=== PATIENT | female | born 1960 | race Caucasian/White ===

== ENCOUNTER 2016-06-28 16:19 | Emergency (ER) | payer SELFPAY ==
[~2016-06-28] VITALS: Ht 154.9 cm; Wt 51.8 kg
[2016-06-28 16:20] VITALS: TEMP 97.9; Ht 154.9 cm; Wt 51.8 kg
--- NOTE | 2016-06-28 16:44 | ERPDOC ---
Departure Disposition Decision Date: June 28, 2016 Disposition Decision Time: 17:34 (YOUSUF IRVIN APRN) Disposition: 01 DISCHARGED HOME, SELF-CARE Impression Impression (YOUSUF IRVIN APRN) Impression: Primary Impression: Abscess Severity: Moderate (YOUSUF IRVIN APRN) Condition: Improved Seen By: Mid-level only (YOUSUF IRVIN APRN) Patient Instructions: Abscess (ED) Problems/Meds/Labs Reviewed?: Yes Medications reviewed and manag: Yes (YOUSUF IRVIN APRN) Additional Instructions: 1. You may either follow up with a primary care provider in 48 hours or remove the packing on your own in 48 hours. If abscess takes a turn for the worse, you will need seen again for a recheck. 2. Take pain meds as needed. You may also take additional ibuprofen as directed. 3. Take antibiotics for entire course of therapy 4. Wash hands before and after touching lesion, this is likely contagious. Follow up care ordered?: Yes Mental Status: Alert, Oriented (YOUSUF IRVIN APRN) Scripts Hydrocodone/Acetaminophen (Lortab 5-325 mg Tablet) 1 Each Tablet 1 TAB PO Q6H Y for PAIN, #14 TAB Prov: YOUSUF IRVIN APRN 06/28/16 Sulfamethoxazole/Trimethoprim (Bactrim Ds Tablet) 1 Each Tablet 1 TAB PO BID for 10 Days, #20 TAB Take 1 tablet, by mouth, 2 times a day. Prov: YOUSUF IRVIN APRN 06/28/16 HPI - Skin General General Chief Complaint: Skin Rash/Abscess Stated Complaint: BOIL ABOVE LIP Time Seen by Provider: 16:44 Source: patient Exam Limitations: no limitations (YOUSUF IRVIN APRN) Time Seen by Provider: 16:44 (VICKY ESCOBAR DO) HPI - Skin General Initial Comments Radha is a 55 year old female who comes to the ER with cc: 5 day history of boil under right nare. Has tried ibuprofen and aspirin and they have not helped pain much. Has tried hot compresses, but it gets bigger. Non diabetic. No fevers. BP has been higher than usual. No CP. No other problems. Grandson recently had a "spider bite." Occurred At: home Onset: Getting worse Duration: other (5 days) Pain Scale: Now: 9/10 Location: face 1 - abscess Possible Cause: no cause identified Associated Symptoms: DENIES: fever (IRVIN,YOUSUF STAIN MAKER) Allergies: Coded Allergies: Penicillins (Verified Allergy, Unknown, 06/28/16) Past History Past Medical History Pt denies signifigant PMH (IRVIN,YOUSUF STAIN MAKER) Surgical History Reproductive/: tubal ligation (IRVINYOUSUF STAIN MAKER) Social History Smoking Status: Current every day smoker # of Packs/Tins per Day: 0.5 Substance Use Type: does not use Alcohol Intake: occasionally Marital Status: Current Occupational Status: unemployed (RENATO IRVINARA STAIN MAKER) Review of Systems Constitutional Constitutional: DENIES: fever (IRVIN,YOUSUF STAIN MAKER) ENMT Mouth/Throat: DENIES: sore throat (IRVIN,YOUSUF STAIN MAKER) Cardiovascular Cardiac: DENIES: chest pain (IRVIN,YOUSUF STAIN MAKER) Pulmonary Respiratory: DENIES: dyspnea (IRVIN,YOUSUF STAIN MAKER) GI Upper Abdomen: DENIES: vomiting (IRVINYOUSUF STAIN MAKER) Integumentary Skin: infections, lesion (IRVIN,YOUSUF STAIN MAKER) Neurological General: DENIES: headache (IRVIN,YOUSUF STAIN MAKER) All other Systems All Other Systems: Reviewed and Negative (IRVIN,YOUSUF STAIN MAKER) Physical Exam General General Nourishment: well nourished, well developed, appears stated age, no acute distress (IRVIN,YOUSUF STAIN MAKER) Vitals and Pain First Documented Vital Signs Date Time Temp Pulse Resp B/P Pulse Ox O2 Delivery O2 Flow Rate FiO2 06/28/16 16:20 97.9 92 20 160/67 100 Room Air ([facility]) Vitals and Pain Weight: Kilograms: 51.800 Height (feet): 5 Height (inches): 1.00 Triage Pain Scale: (IRVIN,YOUSUF STAIN MAKER) Neck (brief) Neck: NOT FOUND: thyromegaly (IRVIN,YOUSUF STAIN MAKER) Respiratory (brief) Respiratory: FOUND: clear all [place], equal bilaterally (IRVIN,YOUSUF STAIN MAKER) Cardiovascular (brief) Cardiac: FOUND: regular rate, regular rhythm (IRVIN,YOUSUF STAIN MAKER) Integumentary (brief) Integumentary Brief: FOUND: dry, lesions (abscess under right nare), pink, warm (IRVIN,YOUSUF STAIN MAKER) Differential Diagnoses Considering: Abscess (YOUSUF IRVIN APRN) Procedures Procedures Performed Procedures Performed: Incision & Drainage (YOUSUF IVRIN APRN) Incision and Drainage Procedure I&D : Prep: betadine Anesthetic: 1% Lidocaine Volume of Anesthetic (cc's): 0.25 Blade Size: #11 Culture Obtained?: No Dressing: Yes Packing: iodoform gauze (YOUSUF IRVIN APRN) Progress Results/Orders Orders Procedure Category Date Status Time Lidocaine 1% PHA 06/28/16 Complete (Xylocaine 1%) 17:00 Communication Order CHRIS 06/28/16 In Process 16:49 Dressing (Ed) EDM 06/28/16 Transmitted 17:27 Hydrocodone/Acetaminophen PHA 06/28/16 Complete ([place] 7.5/325 17:30 ([facility] ) Orders Procedure Category Date Status Time Lidocaine 1% PHA 06/28/16 Complete (Xylocaine 1%) 17:00 Communication Order CHRIS 06/28/16 In Process 16:49 Dressing (Ed) EDM 06/28/16 Transmitted 17:27 Hydrocodone/Acetaminophen PHA 06/28/16 Transmitted ([place] 7.5/325 17:30 (YOUSUF IRVIN APRN) Medications Current ED Medications Lidocaine HCl (Xylocaine 1%) 100 mg O ONCE INFIL Last administered on 17:06; Start 06/28/16 at 17:00; Stop 06/28/16 at 17:01; Status DC Acetaminophen/ Hydrocodone Bitart ([place] 7.5/325) 1 tab O ONCE PO Last administered on 06/28/16 17:35; Start 06/28/16 at 17:30; Stop 06/28/16 at 17:31; Status DC ([facility]) Medications Current ED Medications Lidocaine HCl (Xylocaine 1%) 100 mg O ONCE INFIL Last administered on 17:06; Start 06/28/16 at 17:00; Stop 06/28/16 at 17:01; Status DC (YOUSUF IRVIN APRN) YOUSUF IRVIN APRN June 28, 2016 16:44 [place],[facility] June 28, 2016 17:41
[2016-06-28] MEDS ORDERED: LIDOCAINE 1% (10mg/ml) 30ml SDV INFIL ONE (17:00)
[2016-06-28] MEDS ORDERED: NO KNOWN MEDS (17:12)
[2016-06-28] MEDS ORDERED: HYDR-4009 PO (17:36)
[2016-06-28] MEDS ORDERED: SULF1TAB42 PO (17:36)
[2016-06-28 17:48] VITALS: BP 153/87; PULSE 88; RESP 16; O2SAT 94
== END 2016-06-28 17:50 | disposition home or self-care (01) ==
LOC: ED 16:19
DX: L02.01 Cutaneous abscess of face (principal)